=== PATIENT | female | born 1980 | race Caucasian/White ===

== ENCOUNTER 2017-12-28 20:53 | Emergency (ER) | payer OTHER ==
--- NOTE | 2017-12-28 22:10 | XRAY Report ---
EXAM: RIGHT FOURTH DIGIT RADIOGRAPHY EXAM DATE: 12/28/2017 09:51 PM. CLINICAL HISTORY: Pain after injury. COMPARISON: None. TECHNIQUE: 3 views. FINDINGS: Bones: Dorsally avulsion fracture at the base of the fourth distal phalanx. Joints: No dislocation. Mild joint space narrowing in the interphalangeal joints. Soft Tissues: Mild soft tissue swelling. IMPRESSION: 1. Dorsal avulsion fracture at the base of the fourth distal phalanx. [facility] Referring Provider Line: [phone] SITE ID: [id number]
--- NOTE | 2017-12-28 22:10 | XRAY Preliminary Report ---
Exam: XR FINGER(S) RT IMPRESSION: 1. Dorsal avulsion fracture at the base of the fourth distal phalanx. [facility] SITE ID: [id number]
--- NOTE | 2017-12-28 23:20 | ED Physician Documentation ---
PD HPI UPPER EXT INJURY - Stated complaint Stated Complaint: FINGER INJURY - Chief complaint Chief Complaint: Ext Problem - History obtained from History obtained from: Patient - History of Present Illness Location: Right, Finger (ring finger) Type of injury: Twist Timing - onset: Today Timing - details: Abrupt onset, Still present Review of Systems Cardiac: denies: Palpitations, Pedal edema GI: denies: Vomiting, Diarrhea Musculoskeletal: denies: Neck pain, Back pain Neurologic: denies: Focal weakness, Numbness PD PAST MEDICAL HISTORY - Past Medical History Past Medical History: No Cardiovascular: None Respiratory: None Neuro: None Musculoskeletal: None - Present Medications Home Medications: Ambulatory Orders Medication Instructions Recorded Confirmed Sertraline HCl [Zoloft] 20 mg PO 12/28/17 - Allergies Allergies/Adverse Reactions: Allergies Allergy/AdvReac Type Severity Reaction Status Date / Time Penicillins Allergy Rash Verified 12/28/17 21:03 PD ED PE NORMAL - Vitals Vital signs reviewed: Yes - General General: Alert and oriented X 3, No acute distress, Well developed/nourished - Back Back: No CVA TTP - Derm Derm: Normal color, Warm and dry, No rash - Extremities Extremities: No deformity, No tenderness to palpate Results - Vitals Vitals: Oxygen O2 Source Room air PD MEDICAL DECISION MAKING - ED course Complexity details: reviewed results, considered differential, d/w patient Departure - Departure Disposition: 01 Home, Self Care Clinical Impression: Phalanx, distal fracture of finger Qualifiers: Encounter type: initial encounter Finger: ring finger Fracture type: closed Fracture alignment: displaced Laterality: right Qualified Code(s): S62.634A - Displaced fracture of distal phalanx of right ring finger, initial encounter for closed fracture Condition: Stable Record reviewed to determine appropriate education?: Yes Instructions: ED Fx Finger Closed Follow-Up: Randee Woo MD [Provider Admit Priv/Credential] - Comments: Use a finger splint for a month. It is okay to remove it for showers and cleaning. I would wear it most of the time otherwise. No stressful activity with the finger, such as massage or jujitsu unfortunately. This will take about a month to heal. It is good to ensure it stays in good enough alignment so I would follow-up with orthopedics in about 7-10 days. Call tomorrow for an appointment. Use Tylenol or ibuprofen as needed for pains. Discharge Date/Time: 12/28/17 23:48
[2017-12-28] MEDS ORDERED: IBUPROFEN 600 MG TABLET PO STA (23:41)
[2017-12-28 23:48] VITALS: BP 127/68
== END 2017-12-28 23:48 | disposition home or self-care (01) ==
LOC: ED 20:53
DX: S62.634A Displaced fracture of distal phalanx of right ring finger, initial encounter for closed fracture (principal); X50.9XXA Other and unspecified overexertion or strenuous movements or postures, initial encounter; Y93.75 Activity, martial arts
CPT/HCPCS: 73140; 99283; A9270

== ENCOUNTER 2019-04-05 03:02 | Emergency (ER) | payer MEDICARE, OTHER ==
[2019-04-05] MEDS ORDERED: DEXAMETHASONE 10 MG/ML VIAL PO STA (03:27)
[2019-04-05] MEDS ORDERED: CHERRY SYRUP 10 ML UDC PO ONE (03:27)
[2019-04-05] MEDS ORDERED: FEXOFENADINE 60 MG TABLET PO STA (03:28)
[2019-04-05 03:51] VITALS: BP 131/45
--- NOTE | 2019-04-05 04:10 | ED Physician Documentation ---
History of Present Illness - Stated complaint Stated Complaint: AB PX/SWOLLEN TONGUE - Chief complaint Chief Complaint: Abd Pain - History obtained from History obtained from: Patient, Family - History of Present Illness Timing: Today - Additonal information Additional information: 38-year-old female had some clam chowder earlier today and shortly after eating this she developed a severe sharp stomach pain. She has developed some diarrhea following that without cramping. She feels that she has some slight swelling to her tongue and her children this evening thought she was having some trouble breathing. She is brought into the emergency department by her mother this morning with concerns of shellfish poisoning. She has not had an issue with shellfish previously. She does feel that her tongue is swollen. She is deaf and reads lips quite well. Review of Systems Constitutional: denies: Fever Eyes: denies: Decreased vision Ears: denies: Ear pain Nose: denies: Rhinorrhea / runny nose, Congestion Throat: reports: Other (feels tongue is swollen). denies: Dental pain / toothache, Oral lesions / sores, Sore throat Cardiac: denies: Chest pain / pressure, Palpitations Respiratory: reports: Dyspnea. denies: Cough, Hemoptysis, Wheezing GI: reports: Abdominal Pain, Diarrhea. 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 - Present Medications Home Medications: Ambulatory Orders Medication Instructions Recorded Confirmed Sertraline HCl [Zoloft] 20 mg PO 12/28/17 - Allergies Allergies/Adverse Reactions: Allergies Allergy/AdvReac Type Severity Reaction Status Date / Time Penicillins Allergy Rash Verified 04/05/19 03:16 - Social History Does the pt smoke?: No Smoking Status: Never smoker Does the pt drink ETOH?: No Does the pt have substance abuse?: No - Immunizations Immunizations are current?: Yes - POLST Patient has POLST: No PD ED PE NORMAL - Vitals Vital signs reviewed: Yes (hypertensive ) - General General: Alert and oriented X 3, No acute distress, Well developed/nourished - HEENT HEENT: Atraumatic, PERRL, EOMI, Other (The glossal ruggae appear flattened but the tongue is not overly swollen. There is no subligual swelling. ) - Neck Neck: Supple, no meningeal sign, No bony TTP - Cardiac Cardiac: RRR, No murmur - Respiratory Respiratory: No respiratory distress, Clear bilaterally - Abdomen Abdomen: Soft, Non tender - Back Back: No CVA TTP, No spinal TTP - Derm Derm: Normal color, Warm and dry, No rash - Extremities Extremities: No deformity, No edema, No calf tenderness / cord - Neuro Neuro: Alert and oriented X 3, No motor deficit, No sensory deficit, Normal speech Eye Opening: Spontaneous Motor: Obeys Commands Verbal: Oriented GCS Score: 15 - Psych Psych: Normal mood, Normal affect Results - Vitals Vitals: Vital Signs - 24 hr 04/05/19 04/05/19 04/05/19 03:14 03:47 04:24 Temperature 36.6 C 36.9 C Heart Rate 82 88 Respiratory 17 16 16 Rate Blood Pressure 120/91 H 131/45 H O2 Saturation 99 99 Oxygen O2 Source Room air PD MEDICAL DECISION MAKING - ED course Complexity details: considered differential, d/w patient, d/w family ED course: 38-year-old female with a reaction to clam chowder as a sensation of some swelling in her tongue and the back of her throat. She has minimal findings on exam with the exception of some loss of the rugated of the tongue. She likely has some reaction and is administered dexamethasone 10 mg orally and Jo-Ann 60 mg. She did not want to take Benadryl. She feels it makes her feel odd. She has improvement with the tongue swelling. Departure - Departure Disposition: 01 Home, Self Care Clinical Impression: Shellfish allergy Condition: Stable Instructions: Allergy Food Shellfish Ch Follow-Up: [facility] [Provider Group] Comments: Take the jo-ann twice per day for the next 2 days
[2019-04-05] MEDS ORDERED: ONDANSETRON ODT 4 MG Prepack 2 TL PRN (04:24)
== END 2019-04-05 04:43 | disposition home or self-care (01) ==
LOC: ED 03:02
DX: K14.8 Other diseases of tongue (principal); R06.00 Dyspnea, unspecified; R19.7 Diarrhea, unspecified; T78.1XXA Other adverse food reactions, not elsewhere classified, initial encounter; X58.XXXA Exposure to other specified factors, initial encounter
CPT/HCPCS: 99283; A9270

== ENCOUNTER 2019-05-08 09:04 | Emergency (ER) | payer MEDICARE, OTHER ==
[2019-05-08] MEDS ORDERED: predniSONE 20 MG TABLET PO STA (09:14)
[2019-05-08] MEDS ORDERED: diphenhydrAMINE 25 MG CAPSULE PO STA (09:14)
[2019-05-08] MEDS ORDERED: FAMOTIDINE 20 MG TABLET PO STA (09:15)
--- NOTE | 2019-05-08 09:17 | ED Physician Documentation ---
History of Present Illness - Stated complaint Stated Complaint: ALLERGIC REACTION/DIFFICULTY BREATHING - History obtained from History obtained from: Patient - History of Present Illness Timing: Prior to arrival - Additonal information Additional information: Patient is a 38-year-old female without specific known allergies except to penicillin presenting with concern for allergic reaction that began just prior to arrival. Patient reports that she has had previous allergic reactions to things such as shellfish but denies known exposures or new foods today except for new soap that contained [place]. Patient also notes that she has had multiple bee stings in the last several days. Patient reports urticarial rash to right side face and trunk without lip or tongue swelling. Patient does feel that she is short of breath with throat closing sensation, although feels this is likely due to her known underlying anxiety. Patient took Jo-Ann prior to arrival. No other improving or worsening factors noted. 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 : None HEENT: Other Psych: Anxiety Musculoskeletal: None Derm: None - Past Surgical History Past Surgical History: No - Present Medications Home Medications: Ambulatory Orders Medication Instructions Recorded Confirmed Sertraline HCl [Zoloft] 20 mg PO 12/28/17 predniSONE [Deltasone] 10 mg PO [id number] #42 tab 05/08/19 - Allergies Allergies/Adverse Reactions: Allergies Allergy/AdvReac Type Severity Reaction Status Date / Time Penicillins Allergy Rash Verified 05/08/19 09:16 - Social History Does the pt smoke?: No Smoking Status: Never smoker Does the pt drink ETOH?: No Does the pt have substance abuse?: No - Immunizations Immunizations are current?: Yes - POLST Patient has POLST: No PD ED PE NORMAL - Vitals Vital signs reviewed: Yes - General General: Alert and oriented X 3, No acute distress, Well developed/nourished, Other (Anxious) - HEENT HEENT: Atraumatic, Moist mucous membranes, Pharynx benign, Dentition benign, Other (No lip or intraoral swelling) - Neck Neck: Supple, no meningeal sign - Cardiac Cardiac: RRR, No murmur - Respiratory Respiratory: No respiratory distress, Clear bilaterally - Abdomen Abdomen: Soft, Non tender, Non distended - Derm Derm: Warm and dry. No: No rash (Faint reticular rash over right face extending to neck and upper chest. No mucosalInvolvement. No blistering, hives, or other abnormalities.) - Extremities Extremities: No deformity, No tenderness to palpate - Neuro Neuro: Alert and oriented X 3, No motor deficit, No sensory deficit - Psych Psych: Other (Anxious) Results - Vitals Vitals: Vital Signs - 24 hr 05/08/ 09:15 Temperature 36.2 C L Heart Rate 74 Respiratory 20 Rate Blood Pressure 107/92 H O2 Saturation 100 Oxygen O2 Source Room air PD MEDICAL DECISION MAKING - ED course Complexity details: re-evaluated patient, considered differential, d/w patient ED course: Patient presenting with urticarial rash and no signs of anaphylaxis, respiratory compromise, or other concerns. Do not feel patient requires epinephrine at this time and is otherwise able to tolerate oral medications. Patient received Benadryl, famotidine, and steroid while in the ED with improvement of symptoms. Feel that she is safe to discharge home with continued steroid use, as well as other [id number] medications. Discussed strict return precautions, supportive cares, and follow-up. Patient voiced understanding and is comfortable with discharge plan. Departure - Departure Disposition: 01 Home, Self Care Clinical Impression: Allergic urticaria Condition: Good Instructions: ED Allergic Reaction General Other Follow-Up: your,doctor [Other] - Within 3 Days Prescriptions: predniSONE [Deltasone] 10 mg PO [id number] #[id number] tab Comments: May use Benadryl 25 to 50 mg every 6-8 hours as needed for allergic reaction and itching. May also try other [id number] medications including other antihistamines, as well as ibuprofen and Tylenol as needed. Please take steroids as prescribed starting tomorrow as you received your first dose here in the ED today. This will help dampen allergic reaction symptoms and stop them from reoccurring. Please follow-up with your primary care physician in next 2 to 3 days and return to ED sooner if expands worsening symptoms or have other concerns.
[2019-05-08 10:26] VITALS: BP 120/65
== END 2019-05-08 10:25 | disposition home or self-care (01) ==
LOC: ED 09:04
DX: L50.0 Allergic urticaria (principal)
CPT/HCPCS: 99282; 99284; A9270; J7512